=== PATIENT | male | born 1955 ===

== ENCOUNTER 2020-02-16 06:17 | Day surgery (SDC) | payer OTHER ==
[2020-02-15 12:07] VITALS: BMI 23.7
--- NOTE | 2020-02-15 14:25 | HP ---
Satellite [facility] - Chief Complaint Chief Complaint: left knee pain - Past Medical History Allergies/Adverse Reactions: Allergies Allergy/AdvReac Type Severity Reaction Status Date / Time No Known Drug Allergies Allergy Verified 02/15/20 12:14 - Current Medications Current Medications: Home Medications Medication Instructions Recorded Fluticasone/Vilanterol [Breo 1 each IH PRN PRN 02/15/20 Ellipta 100-25 Mcg INH] Montelukast Na [Singulair -] 10 mg PO HS 02/15/20 Satellite Physical Exam - Physical Examination General Appearance: Well Nourished, Well Developed, Alert & Oriented x3 ENT: Clear Lung: Normal air movement Extremities: Other (left knee- +swelling, + ttp, decr rom, + mcmurrays, nvi) Neurological: Intact, Alert, Oriented Satellite Impression/Plan - Impression/Plan Impression: left knee internal derangement Operative Procedure: left knee arthroscopy Date to be Performed: 02/16/20
[2020-02-16] MEDS ORDERED: LIDOCAINE 1%-EPI 1:100,000 30 ML MDV IJ ONE (07:17)
[2020-02-16] MEDS ORDERED: PROPOFOL 20 ML ONE ×2 (07:44)
[2020-02-16] MEDS ORDERED: MIDAZOLAM HCL 2 MG/2 ML SINGLE DOSE VIAL ONE (07:44)
[2020-02-16] MEDS ORDERED: ONDANSETRON 4 MG/2 ML VIAL IVPUSH PRN (08:02)
[2020-02-16] MEDS ORDERED: oxyCODONE HCL 5 MG TABLET PO PRN (08:02)
[2020-02-16] MEDS ORDERED: LACTATED RINGERS SOLUTION 1,000 ML IV SCH (08:15)
[2020-02-16] MEDS ORDERED: LIDO 2%/EPI 1:200000 PRESRVFRE (20 ML SDVIAL) INF ONE (08:34)
[2020-02-16] MEDS ORDERED: BUPIVACAINE HCL/PF 0.5% (5 MG/ML) 30 ML VIAL IJ ONE ×2 (08:34)
--- NOTE | 2020-02-16 09:11 | OP ---
Operative Note - Note: Operative Date: 02/16/20 Pre-Operative Diagnosis: internal derangemnet left knee Operation: arthroscopy left knee with partial MM Post-Operative Diagnosis: Same as Pre-op Anesthesia: General Estimated Blood Loss (mls): 0 Operative Report Dictated: Yes
[2020-02-16 11:30] VITALS: BP 143/89; PULSE 76; TEMP 97.8
--- NOTE | 2020-02-16 11:51 | SPEC ---
DATE OF OPERATION: 02/16/2020 PREOPERATIVE DIAGNOSIS: Internal derangement, left knee. POSTOPERATIVE DIAGNOSIS: Internal derangement, left knee. PROCEDURE: Left knee arthroscopy, partial medial meniscectomy. SURGICAL ATTENDING: Musa Ramos MD RADIOLOGY ORDERLY: No salon assistant. ANESTHESIA: General with LMA. CLOSURE: 4-0 nylon. COMPLICATIONS: None. CONDITION: To recovery room in stable condition. DESCRIPTION OF OPERATIVE PROCEDURE: Patient was taken to the operating room on February 16, 2020. General anesthesia with LMA was administered by the anesthesiologist. The left lower extremity was prepped and draped in the usual sterile fashion. The medial and lateral infrapatellar portal sites were infiltrated with 1% Xylocaine with epinephrine. Both portals were then made with a 15 blade followed by a blunt trocar. The scope was placed in the lateral infrapatellar portal and up into the suprapatellar pouch. The knee was inflated with a cocktail of 10 mL of 1% Xylocaine, 10 mL of 0.5% Marcaine, and 20 mL of arthroscopic saline. This was allowed to sit in the knee for a few minutes to allow the anesthetic to work intraarticularly. The scope was placed in the lateral infrapatellar portal and up into the suprapatellar pouch. The pouch was visualized to be clean. The medial and lateral gutters were visualized to be clean. The undersurface of the patella and trochlea were visualized to be intact. With valgus stress on the knee, the medial compartment was entered. The medial meniscus was visualized, probed, and found to have a complex tear of the posterior horn. This was debrided back to smooth stable meniscal tissue using a meniscal biter and arthroscopic shaver. The medial femoral condyle was run and found to be intact as well as the medial tibial plateau. At 90 degrees, the ACL was visualized, probed, and found to be intact. In the figure 4 position, the lateral compartment was entered. The lateral meniscus was visualized, probed, and found to be intact. The lateral femoral condyle was run and found to be intact as was the lateral tibial plateau. The knee was irrigated with copious amounts of irrigation and then the fluid was drained. The inferomedial portal was closed then with 4-0 nylon. Prior to pulling the trocar from the lateral infrapatellar portal, 20 mL of 0.5% Marcaine was infused into the knee for postoperative analgesia. The trocar was then pulled and the incision was closed with 4-0 nylon suture. A sterile pressure dressing was applied. Patient awakened from anesthesia and transferred to recovery in stable condition. No complication. Estimated blood loss negligible. MUSA RAMOS M.D. [id number]
--- NOTE | 2020-02-17 12:18 | PATH ---
Surgical Pathology Report Patient Name: MAIRA ARRIAGA [facility]. Rec. #: [id number] /Age/Gender: 1955 (Age: 64) / M Account: [id number] Location: [facility] SURGICAL Taken: 02/16/2020 Received: 02/16/2020 Reported: 02/17/2020 Physicians: Musa Ramos M.D. Specimen(s) Received LEFT KNEE SHAVINGS Clinical History Left knee tear Final Diagnosis LEFT KNEE SHAVINGS: PORTIONS OF SYNOVIAL AND FIBROCARTILAGINOUS TISSUE WITH FOCAL DEGENERATIVE CHANGE. Electronically Signed Radha Rojas M.D. Gross Description Received in formalin, labeled "left knee shavings," is a 3.0 x 2.4 x 0.3 cm. aggregate of inman-yellow soft tissue fragments. A phone representative portion is submitted in one cassette. DL/02/16/2020 saudi/02/16/2020
== END 2020-02-16 11:55 | disposition home or self-care (01) ==
LOC: JASU-SURG 06:17
PROVIDERS: ATTEND Orthopaedic Surgery
PROC: 0SBD4ZZ Excision of Left Knee Joint, Percutaneous Endoscopic Approach (ICD-10-PCS; principal; 2020-02-16 08:00)
DX: M23.322 Other meniscus derangements, posterior horn of medial meniscus, left knee (principal)
CPT/HCPCS: 88304-TC; 94760